=== PATIENT | female | born 1985 | race Caucasian/White ===

== ENCOUNTER 2019-08-25 12:24 | Emergency (ER) | payer BC ==
[~2019-08-25] VITALS: Ht 172.7 cm; Wt 57.0 kg
[2019-08-25] MEDS ORDERED: SUMATRIPTAN SUCCINATE 6MG/0.5ML VIAL SUBCUT ONE ×2 (12:30)
[2019-08-25 13:46] VITALS: BP 128/85
== END 2019-08-25 14:00 | disposition home or self-care (01) ==
LOC: ER 12:24
DX: R51 Headache (principal); R03.0 Elevated blood-pressure reading, without diagnosis of hypertension
CPT/HCPCS: 96372; 99283; J3030